=== PATIENT | male | born 1965 | race Caucasian/White ===

== ENCOUNTER 2017-02-18 19:16 | Emergency (ER) | payer OTHER ==
[~2017-02-18] VITALS: Ht 188 cm; Wt 118.0 kg
[2017-02-18 19:18] VITALS: BP 188/93; PULSE 70; RESP 15; TEMP 99; O2SAT 98
--- NOTE | 2017-02-18 19:24 | PD ---
Physical Exam Date Seen by Provider: Feb 18, 2017 Time Seen by Provider: 19:23 Narrative 51 year old male presents to the emergency department for evaluation of right hand burn on the volar surface that occurred approximately 1 hour ago after he grabbed a hot frying stiles. Patient awaiting bed placement. Data Data Last Documented VS Vital Signs Date Time Temp Pulse Resp B/P Pulse Ox O2 Delivery O2 Flow Rate FiO2 02/18/17 19:18 99.0 70 15 188/93 98 Room Air [facility] Supervised Visit with LELE: Gillian Beltran Feb 18, 2017 19:24
[2017-02-18] MEDS ORDERED: SILV1CRE80 TOPICAL (20:42)
[2017-02-18] MEDS ORDERED: HYDR-3533 PO (20:42)
[2017-02-18] MEDS ORDERED: SILVER SULFADIAZINE 1% CR 50 GM JAR TOPICAL ONE (20:45)
[2017-02-18] MEDS ORDERED: ONDANSETRON ODT 4 MG TAB PO ONE (20:45)
[2017-02-18] MEDS ORDERED: ACETAMINOPHEN/HYDROcodone 325 MG/5 MG TAB PO ONE (20:45)
[2017-02-18] MEDS ORDERED: IBUPROFEN 800 MG TAB PO ONE (20:45)
--- NOTE | 2017-02-18 20:46 | PD ---
HPI Chief Complaint: Burn Time Seen by Provider: 20:36 Travel History International Travel<30 days: No Contact w/Intl Traveler<30days: No Traveled to known affect area: No History of Present Illness HPI 50-year-old male presents for evaluation of a burn to the right hand. It was sustained prior to arrival when he grabbed a hot stiles that was taken out of the oven which was at 4 and 2. He now has pain primarily to the finger pads of the second through fifth fingers of the right hand, some pain to the right hand hyperthenar eminence and mild pain to the distal volar aspect of the hand. Pain is throbbing and worse when his hand is not being soaked in cold water. Last tetanus vaccination greater than 5 years ago. No other complaints. PFSH Social History Alcohol Use: No Tobacco Use: No Allergies-Medications (Allergen,Severity, Reaction): Coded Allergies: No Known Allergies (Unverified , 02/18/17) Reported Meds & Prescriptions Reported Meds & Active Scripts Active Silver Sulfadiazine Topical (Silver Sulfadiazine) 1 % Cream 1 Applic TOPICAL BID 7 Days Lortab (Hydrocodone-Acetaminophen) 5-325 Mg Tab 1 Tab PO Q6H PRN Review of Systems General / Constitutional: No: Fever Musculoskeletal: No: Limited ROM Skin: Positive Other (right hand pain, blistering, burn) Physical Exam Narrative GENERAL: Well-developed well-nourished male in no acute distress SKIN: Warm and dry. Second-degree burn noted to the finger pad of the right hand second and fifth digits, right hand hyperthenar eminence primarily. Very slight blister formation. No third degree yu. No tenderness to palpation over the joint creases. No fusiform yu. Extremities: Skin as noted above. Full range of motion right hand. Data Data Last Documented VS Vital Signs Date Time Temp Pulse Resp B/P Pulse Ox O2 Delivery O2 Flow Rate FiO2 02/18/17 19:18 99.0 70 15 188/93 98 Room Air Orders Acetamin-Hydrocod 325-5 Mg ([place] 5-325 (02/18/17 20:45) Ondansetron Odt (Zofran Odt) (02/18/17 20:45) Ibuprofen (Motrin) (02/18/17 20:45) Silver Sulfadia 1% Crm (50 Gm) ([place] (02/18/17 20:45) Wound Care (02/18/17 20:41) Tetanus/Diphtheria Tox Adult (Tetanus/Di (02/18/17 21:00) MDM Medical Decision Making Medical Screen Exam Complete: Yes Emergency Medical Condition: Yes Medical Record Reviewed: Yes Differential Diagnosis Superficial burn, superficial partial thickness, deep partial-thickness, full- thickness burn Narrative Course The patient presents with superficial partial-thickness yu primarily to the finger pad to the right hand and hypothenar eminence region. No joint involvement. No fusiform yu. Plan is for local wound care with silver sulfadiazine cream and pain control. He was given Lortab, Zofran, tetanus vaccination, ibuprofen here and he'll be discharged with prescriptions for silver sulfadiazine and Lortab. Recommended outpatient follow-up with primary care physician next week, return for any evidence of infection. He is stable for discharge. Diagnosis Primary Impression: Second degree burn of hand Qualified Code: T23.201A - Second degree burn of hand, right, initial encounter Additional Instructions: As discussed, change dressings twice a day, loosely bandaged, do not tightly wrapped. Avoid popping blisters, then a pop on their own. Pain medication as needed. Do not drive or drink alcohol when taking Lortab. Continue over-the- counter ibuprofen as well. Follow-up with primary care physician in 5-7 days for recheck. Return for any emergent medical conditions. Med/Other Pt SpecificInfo: Prescription(s) given, Wound Care Scripts Silver Sulfadiazine Topical 1 % Cream1 Applic TOPICAL BID 7 Days Ref 0 Prov:Miguel Martínez MD 02/18/17 Hydrocodone-Acetaminophen (Lortab)5-325 Mg Tab1 Tab PO Q6H PRN (PAIN) #20 TAB Ref 0 Prov:Miguel Martínez MD 02/18/17 Disposition: 01 DISCHARGE HOME Condition: Stable Mark Hou Feb 18, 2017 20:46
[2017-02-18] MEDS ORDERED: TETANUS/DIPHTHERIA TOXOID ADULT 0.5 ML VIAL IM ONE (21:00)
== END 2017-02-18 21:30 | disposition home or self-care (01) ==
LOC: NEPK 19:16
DX: T23.201A Burn of second degree of right hand, unspecified site, initial encounter (principal); Z23 Encounter for immunization; X15.3XXA Contact with hot saucepan or skillet, initial encounter
CPT/HCPCS: 16020; 90471; 90714